=== PATIENT | male | born 1995 | race Caucasian/White ===

== ENCOUNTER 2018-12-03 12:50 | Inpatient (IN) | payer BC, OTHER | END 2018-12-07 13:30 | disposition left against medical advice (07) | LOC: ER 12:50 → ED HOLD 21:48 → CICU 2S 23:19 → SUR 3N 12-04 12:44 | DX: A41.9 Sepsis, unspecified organism (principal); R65.21 Severe sepsis with septic shock; N17.9 Acute kidney failure, unspecified; E87.0 Hyperosmolality and hypernatremia; F11.10 Opioid abuse, uncomplicated ==